=== PATIENT | female | born 2000 | race Caucasian/White ===

== ENCOUNTER 2018-11-25 19:11 | Emergency (ER) | payer OTHER ==
[2018-11-25] MEDS ORDERED: DEXTROSE 5%-NORMAL SALINE 1,000 ML IV ONE (19:38)
[2018-11-25] MEDS ORDERED: METOCLOPRAMIDE HCL INJ/PF 10 MG/2 ML SDV IV ONE (19:38)
[2018-11-25] MEDS ORDERED: PYRIDOXINE HCL INJ 100 MG/1 ML VIAL IV ONE (19:39)
[2018-11-25] MEDS ORDERED: DIPHENHYDRAMINE HCL 50 MG/ML VIAL IV ONE (19:39)
--- NOTE | 2018-11-25 19:41 | ER Document Report ---
ED Medical Screen (RME) - General Chief Complaint: Nausea/Vomiting Stated Complaint: VOMITING Time Seen by Provider: 11/25/18 19:37 Primary Care Provider: YOBANY ALFARO MD [Primary Care Provider] - Follow up as needed Mode of Arrival: Ambulatory Information source: Patient Notes: This is a 17-year-old female 1 para 0 that presents to the emergency room with nausea, vomiting, not tolerating fluids. [facility]. TRAVEL OUTSIDE OF THE [place] IN LAST 30 DAYS: No - Related Data Allergies/Adverse Reactions: No Known Allergies Allergy (Unverified 11/25/18 19:37) Past Medical History - Social History Chew tobacco use (# tins/day): No Frequency of alcohol use: None Drug Abuse: None Renal/ Medical History: Denies: Hx Peritoneal Dialysis Past Surgical History: Reports: Hx Gynecologic Surgery - D&C Physical Exam - Vital signs Vitals: Temp Pulse Resp BP Pulse Ox 99.1 F 110 H 18 116/62 100 11/25/18 19:23 11/25/18 19:23 11/25/18 19:23 11/25/18 19:23 11/25/18 19:23 Course - Vital Signs Vital signs: Temp Pulse Resp BP Pulse Ox 99.1 F 110 H 18 116/62 100 11/25/18 19:23 11/25/18 19:23 11/25/18 19:23 11/25/18 19:23 11/25/18 19:23 Doctor's Discharge - Discharge Referrals: YOBANY ALFARO MD [Primary Care Provider] - Follow up as needed
[2018-11-25 20:16] LABS: ABSOLUTE EOSINOPHILS # (AUTO) 0.1 10^3/uL (0.0-0.6); ABSOLUTE LYMPHOCYTES (AUTO) 1.4 10^3/uL (0.5-4.7); ABSOLUTE MONOCYTES (AUTO) 0.6 10^3/uL (0.1-1.4); ABSOLUTE NEUT (AUTO) 6.8 10^3/uL (1.7-8.2); BASOPHILS % (AUTO) 0.2 % (0-2); EOSINOPHILS % (AUTO) 0.8 % (0-6); HEMATOCRIT 38.5 % (36.0-47.0); HEMOGLOBIN 12.9 g/dL (12.0-15.5); LYMPHOCYTES % (AUTO) 15.7 % (13-45); MEAN CORPUSCULAR HEMOGLOBIN 28.3 pg (27.0-33.4); MEAN CORPUSCULAR HGB CONC 33.5 g/dL (32.0-36.0); MEAN CORPUSCULAR VOLUME 84 fl (80-97); MONOCYTES % (AUTO) 7.1 % (3-13); PLATELET COUNT 371 10^3/uL (150-450); RED BLOOD COUNT 4.57 10^6/uL (3.72-5.28); SEGMENTED NEUTROPHILS % (AUTO) 76.2 % (42-78); TOTAL CELLS COUNTED % (AUTO) 100 %
[2018-11-25 20:33] LABS: APPEARANCE,URINE SLIGHTLY-CLOUDY; BILIRUBIN,URINE NEGATIVE (NEGATIVE); COLOR,URINE YELLOW; GLUCOSE, URINE NEGATIVE (NEGATIVE); KETONES,URINE 20 mg/dL (NEGATIVE); LEUKOCYTE ESTERASE,URINE NEGATIVE (NEGATIVE); NITRITE,URINE NEGATIVE (NEGATIVE); PROTEIN,URINE NEGATIVE (NEGATIVE); URINE SPECIFIC GRAVITY 1.019
[2018-11-25 20:37] LABS: ALANINE AMINOTRANSFERASE 18 U/L (5-35); ALBUMIN 4.8 g/dL (3.7-5.6); ALKALINE PHOSPHATASE 67 U/L (50-135); ANION GAP 14 (5-19); ASPARTATE AMINO TRANSFERASE 25 U/L (5-30); BILIRUBIN,DIRECT 0.2 mg/dL (0.0-0.4); BILIRUBIN,TOTAL 0.6 mg/dL (0.2-1.3); BLOOD UREA NITROGEN 10 mg/dL (7-20); CALCIUM 10.3 mg/dL (8.4-10.2); CARBON DIOXIDE 24 mmol/L (22-30); CHLORIDE 100 mmol/L (98-107); GLUCOSE 90 mg/dL (75-110); POTASSIUM 3.7 mmol/L (3.6-5.0); SODIUM 137.6 mmol/L (137-145); TOTAL PROTEIN 7.5 g/dL (6.3-8.2)
--- NOTE | 2018-11-25 21:10 | ER Document Report ---
ED General - General Chief Complaint: Nausea/Vomiting Stated Complaint: VOMITING Time Seen by Provider: 11/25/18 19:37 Primary Care Provider: YOBANY ALFARO MD [COMMUNITY BASED STAFF] - Follow up as needed Mode of Arrival: Ambulatory Notes: Patient is a 17-year-old female at approximately 7 weeks by ultrasound who presents with 2-3 days of intractable nausea and vomiting. Patient states that she has been unable to keep almost anything down including even fluids. She states that she was seen at [facility] today, apparently was supposed to be prescribed rectal Phenergan but the prescription was not called in. She has therefore been unable to take anything for her symptoms. She states any attempt at eating or drinking worsens her symptoms. Has been nauseated for the past 10 days but states the vomiting did not start until the past 48-72 hours. Denies any abdominal pain or vaginal bleeding. No fever or constitutional symptoms. Symptoms are constant, unchanged today relative to the past several days. TRAVEL OUTSIDE OF THE [place] IN LAST 30 DAYS: No - Related Data Allergies/Adverse Reactions: No Known Allergies Allergy (Unverified 11/25/18 19:37) Past Medical History - General Information source: Patient - Social History Smoking Status: Never Smoker Chew tobacco use (# tins/day): No Frequency of alcohol use: None Drug Abuse: None Lives with: Spouse/Significant other Family History: Reviewed & Not Pertinent Patient has suicidal ideation: No Patient has homicidal ideation: No Renal/ Medical History: Denies: Hx Peritoneal Dialysis Past Surgical History: Reports: Hx Gynecologic Surgery - D&C Review of Systems - Review of Systems Notes: Constitutional: Negative for fever. HENT: Negative for sore throat. Eyes: Negative for visual changes. Cardiovascular: Negative for chest pain. Positive for lightheadedness Respiratory: Negative for shortness of breath. Gastrointestinal: Negative for abdominal pain, positive for vomiting Genitourinary: Negative for dysuria. Musculoskeletal: Negative for back pain. Skin: Negative for rash. Neurological: Negative for headaches, weakness or numbness. 10 point ROS negative except as marked above and in HPI. Physical Exam - Vital signs Vitals: Temp Pulse Resp BP Pulse Ox 99.1 F 110 H 18 116/62 100 11/25/18 19:23 11/25/18 19:23 11/25/18 19:23 11/25/18 19:23 11/25/18 19:23 Interpretation: Tachycardic Notes: PHYSICAL EXAMINATION: GENERAL: Well-appearing, well-nourished and in no acute distress. HEAD: Atraumatic, normocephalic. EYES: Pupils equal round and reactive to light, extraocular movements intact, sclera anicteric, conjunctiva are normal. ENT: nares patent, oropharynx clear without exudates. Mild dry mucous membranes. NECK: Normal range of motion, supple without lymphadenopathy LUNGS: Breath sounds clear to auscultation bilaterally and equal. No wheezes rales or rhonchi. HEART: Regular rate and rhythm without murmurs ABDOMEN: Soft, nontender, normoactive bowel sounds. No guarding, no rebound. No masses appreciated. EXTREMITIES: Normal range of motion, no pitting or edema. No cyanosis. NEUROLOGICAL: No focal neurological deficits. Moves all extremities spontaneously and on command. PSYCH: Normal mood, normal affect. SKIN: Warm, Dry, normal turgor, no rashes or lesions noted. Course - Re-evaluation Re-evalutation: 11/25/18 21:08 Patient presents with persistent vomiting during . Vitals at time of arrival unremarkable without tachycardia or hypotension. Laboratories reveal a normal creatinine and no evidence of significant dehydration. Patient was able to tolerate oral intake here in the emergency department. IV fluids were provided. Patient has had a confirmed intrauterine with in the past 1 week. No indication for repeat imaging given absence of abdominal pain or bleeding. Based on abdominal exam, vitals and history I do not suspect an acute appendicitis, cholestasis of , acute cholecystitis, pancreatitis, or bowel obstruction. Patient will be started on a combination of doxylamine and vitamin B6. At this time will discharge with return precautions and follow- up recommendations. Verbal discharge instructions given a the bedside and opportunity for questions given. Medication warnings reviewed. Patient is in agreement with this plan and has verbalized understanding of return precautions and the need for primary care follow-up in the next 24-72 hours. 11/25/18 21:08 - Vital Signs Vital signs: Temp Pulse Resp BP Pulse Ox 99.1 F 110 H 18 116/62 100 11/25/18 19:23 11/25/18 19:23 11/25/18 19:23 11/25/18 19:23 11/25/18 19:23 - Laboratory Result Diagrams: 11/25/18 19:50 11/25/18 19:50 Laboratory results interpreted by me: 11/25/18 11/25/18 19:50 19:50 Calcium 10.3 H Urine Ketones 20 H Urine Urobilinogen 4.0 H Discharge - Discharge Clinical Impression: Vomiting during , Dehydration Condition: Good Disposition: HOME, SELF-CARE Additional Instructions: You have been seen for vomiting during . You should continue to drink plenty of water and consider taking a solution such as Pedialyte if your having difficulty eating food. Please return if you become unable to drink any fluids for more than 12 hours, urinate less than twice a day, pass out, or have any other symptoms that are concerning to you. For nausea and vomiting during I recommend: Start with 10-12.5 mg of pyridoxine (vitamin B6) three times a day for 2 days. If not fully effective, Increase to 12.5 mg of pyridoxine four times a day for 2 days. If not fully effective, Increase to 25 mg of pyridoxine three times a day for 2 days. If not fully effective, Continue 25 mg pyridoxine 3 times a day, and add 12.5 mg of doxylamine before bedtime each day for 2 days. If not fully effective, Continue 25 mg pyridoxine 3 times a day, and take 12.5 mg of doxylamine twice a day. If not fully effective, Continue 25 mg pyridoxine 3 times a day, and take 12.5 mg of doxylamine three times a day. Prescriptions: Promethazine HCl [Phenergan 25 mg Supp.rect] 1 supp MI Q6H #12 supp.rect Referrals: YOBANY ALFARO MD [COMMUNITY BASED STAFF] - Follow up as needed
[2018-11-25 22:26] VITALS: BP 112/70
== END 2018-11-25 22:27 | disposition home or self-care (01) ==
LOC: ER 19:11
DX: O21.9 Vomiting of pregnancy, unspecified (principal); E86.0 Dehydration; Z3A.01 Less than 8 weeks gestation of pregnancy
CPT/HCPCS: 99284; 96374; 96375; 36415; 84702; 85025; 80053; 81001; J2765; J3415

== ENCOUNTER 2018-12-09 11:43 | Emergency (ER) | payer OTHER ==
--- NOTE | 2018-12-09 12:38 | ER Document Report ---
ED Medical Screen (RME) - General Chief Complaint: Nausea/Vomiting Stated Complaint: VOMITING,WEAKNESS Time Seen by Provider: 12/09/18 12:35 Mode of Arrival: Ambulatory Information source: Patient Notes: 17-year-old female presents to ED for complaint of nausea vomiting for the last week and a half. She states she is not able to keep anything down. She states that she is and has been to [facility]. States they started her on vinegar and it did not help started on back cages and that did not help and now she is not able to keep anything down. She is alert oriented re spirations regular and unlabored speaking in full sentences does not appear to be in any distress at this time. I have greeted and performed a rapid initial assessment of this patient. A comprehensive ED assessment and evaluation of the patient, analysis of test results and completion of medical decision making process will be conducted by an additional ED providers. TRAVEL OUTSIDE OF THE [place] IN LAST 30 DAYS: No - Related Data Allergies/Adverse Reactions: No Known Allergies Allergy (Verified 12/09/18 11:48) Past Medical History - Social History Chew tobacco use (# tins/day): No Frequency of alcohol use: None Drug Abuse: None Renal/ Medical History: Denies: Hx Peritoneal Dialysis Past Surgical History: Reports: Hx Gynecologic Surgery - D&C Physical Exam - Vital signs Vitals: Temp Pulse Resp BP Pulse Ox 98.0 F 89 18 107/53 L 79 L 12/09/18 11:49 12/09/18 11:49 12/09/18 11:49 12/09/18 11:49 12/09/18 11:49 Course - Vital Signs Vital signs: Temp Pulse Resp BP Pulse Ox 98.0 F 89 18 107/53 L 79 L 12/09/18 11:49 12/09/18 11:49 12/09/18 11:49 12/09/18 11:49 12/09/18 11:49
[2018-12-09 13:00] LABS: ABSOLUTE LYMPHOCYTES (AUTO) 1.9 10^3/uL (0.5-4.7); ABSOLUTE MONOCYTES (AUTO) 0.5 10^3/uL (0.1-1.4); ABSOLUTE NEUT (AUTO) 9.6 10^3/uL (1.7-8.2); BASOPHILS % (AUTO) 0.4 % (0-2); EOSINOPHILS % (AUTO) 0.2 % (0-6); HEMATOCRIT 39.8 % (36.0-47.0); HEMOGLOBIN 13.4 g/dL (12.0-15.5); LYMPHOCYTES % (AUTO) 15.4 % (13-45); MEAN CORPUSCULAR HEMOGLOBIN 28.4 pg (27.0-33.4); MEAN CORPUSCULAR HGB CONC 33.7 g/dL (32.0-36.0); MEAN CORPUSCULAR VOLUME 84 fl (80-97); MONOCYTES % (AUTO) 4.2 % (3-13); PLATELET COUNT 435 10^3/uL (150-450); RED BLOOD COUNT 4.73 10^6/uL (3.72-5.28); RED CELL DISTRIBUTION WIDTH 14.3 % (11.5-14.0); SEGMENTED NEUTROPHILS % (AUTO) 79.8 % (42-78); TOTAL CELLS COUNTED % (AUTO) 100 %
[2018-12-09 13:07] LABS: APPEARANCE,URINE SLIGHTLY-CLOUDY; BILIRUBIN,URINE NEGATIVE (NEGATIVE); COLOR,URINE AMBER; GLUCOSE, URINE NEGATIVE (NEGATIVE); KETONES,URINE 80 mg/dL (NEGATIVE); LEUKOCYTE ESTERASE,URINE SMALL (NEGATIVE); NITRITE,URINE NEGATIVE (NEGATIVE); PROTEIN,URINE NEGATIVE (NEGATIVE); URINE SPECIFIC GRAVITY 1.034; UROBILINOGEN,URINE NEGATIVE mg/dL (<2.0)
[2018-12-09 13:22] LABS: ALANINE AMINOTRANSFERASE 24 U/L (5-35); ALBUMIN 4.8 g/dL (3.7-5.6); ALKALINE PHOSPHATASE 69 U/L (50-135); ANION GAP 14 (5-19); ASPARTATE AMINO TRANSFERASE 26 U/L (5-30); BILIRUBIN,DIRECT 0.2 mg/dL (0.0-0.4); BILIRUBIN,TOTAL 0.7 mg/dL (0.2-1.3); BLOOD UREA NITROGEN 13 mg/dL (7-20); CALCIUM 10.8 mg/dL (8.4-10.2); CARBON DIOXIDE 23 mmol/L (22-30); CHLORIDE 101 mmol/L (98-107); GLUCOSE 85 mg/dL (75-110); POTASSIUM 4.6 mmol/L (3.6-5.0); SODIUM 138.3 mmol/L (137-145); TOTAL PROTEIN 7.9 g/dL (6.3-8.2)
[2018-12-09] MEDS ORDERED: METOCLOPRAMIDE HCL INJ/PF 10 MG/2 ML SDV IV ONE (14:16)
[2018-12-09] MEDS: RINGERS SOLUTION,LACTATED 1,000 ML IV PRN ×2 (15:00→15:14)
--- NOTE | 2018-12-09 17:17 | ER Document Report ---
Entered by DARIA PEACE SCRIBE 12/09/18 1500 Acting as scribe for:BART SAUER DO ED GI/ - General Chief Complaint: Nausea/Vomiting Stated Complaint: VOMITING,WEAKNESS Time Seen by Provider: 12/09/18 12:35 Primary Care Provider: KOBY FARAH DO [Primary Care Provider] - Follow up as needed Mode of Arrival: Ambulatory Information source: Patient Notes: 17 year old female who is 9 weeks that presents to the emergency department today with complaints of nausea. Patient states she is prescribed Phenergan and diclegis but never have worked for her nausea. Patient is . Patient states she has not vomited yet. TRAVEL OUTSIDE OF THE [place] IN LAST 30 DAYS: No - Related Data Allergies/Adverse Reactions: No Known Allergies Allergy (Verified 12/09/18 11:48) Past Medical History - General Information source: Patient - Social History Smoking Status: Never Smoker Cigarette use (# per day): No Chew tobacco use (# tins/day): No Frequency of alcohol use: None Drug Abuse: None Lives with: Family Family History: Reviewed & Not Pertinent Patient has suicidal ideation: No Patient has homicidal ideation: No Past Surgical History: Reports: Hx Gynecologic Surgery - D&C Review of Systems - Review of Systems Constitutional: No symptoms reported EENT: No symptoms reported Cardiovascular: No symptoms reported Respiratory: No symptoms reported Gastrointestinal: See HPI, Nausea. denies: Vomiting Genitourinary: No symptoms reported Female Genitourinary: See HPI, Musculoskeletal: No symptoms reported Skin: No symptoms reported Hematologic/Lymphatic: No symptoms reported Neurological/Psychological: No symptoms reported -: Yes All other systems reviewed and negative Physical Exam - Vital signs Vitals: Temp Pulse Resp BP Pulse Ox 98.0 F 89 18 107/53 L 97 12/09/18 11:49 12/09/18 11:49 12/09/18 11:49 12/09/18 11:49 12/09/18 11:49 Course - Re-evaluation Re-evalutation: 12/09/18 17:11 Patient with vomiting in early . Patient is 9 weeks today and had an ultrasound outpatient confirming intrauterine . Patient has tried using Phenergan and likely just at home without results. Patient was given Reglan and fluids here. She is now able to take p.o. Will be given a prescrip tion for Reglan and Zofran as needed for nausea and vomiting. - Vital Signs Vital signs: Temp Pulse Resp BP Pulse Ox 98.0 F 89 18 107/53 L 97 12/09/18 11:49 12/09/18 11:49 12/09/18 11:49 12/09/18 11:49 12/09/18 11:49 - Laboratory Result Diagrams: 12/09/18 12:43 12/09/18 12:43 Laboratory results interpreted by me: 12/09/18 12/09/18 12/09/18 12:43 12:43 12:43 WBC 12.0 H RDW 14.3 H Seg Neutrophils % 79.8 H Absolute Neutrophils 9.6 H Calcium 10.8 H Beta HCG, Quant 576516.00 H Urine Ketones 80 H Ur Leukocyte Esterase SMALL H Discharge - Discharge Clinical Impression: Vomiting affecting , antepartum Condition: Stable Instructions: Vomiting ([facility]), Hyperemesis Gravidarum ([facility]) Prescriptions: Metoclopramide HCl [Reglan 10 mg Tablet] 1 - 2 tab PO ASDIR PRN #60 tablet PRN Reason: Referrals: KOBY FARAH DO [Primary Care Provider] - Follow up as needed Scribe Attestation: 12/09/18 17:17 I personally performed the services described in the documentation, reviewed and edited the documentation which was dictated to the scribe in my presence, and it accurately records my words and actions. I personally performed the services described in the documentation, reviewed and edited the documentation which was dictated to the scribe in my presence, and it accurately records my words and actions.
[2018-12-09 17:35] VITALS: BP 109/60
== END 2018-12-09 17:35 | disposition home or self-care (01) ==
LOC: ER 11:43
DX: O21.9 Vomiting of pregnancy, unspecified (principal); Z3A.09 9 weeks gestation of pregnancy
CPT/HCPCS: 99284; 96361; 96374; 36415; 84702; 85025; 80053; 81001; J2765; J7120

== ENCOUNTER 2019-05-22 14:39 | Outpatient (CLI) | payer OTHER ==
[2019-05-22 15:21] LABS: AMORPHOUS SEDIMENT,URINE TRACE /HPF; APPEARANCE,URINE SLIGHTLY-CLOUDY; BILIRUBIN,URINE NEGATIVE (NEGATIVE); COLOR,URINE AMBER; GLUCOSE, URINE NEGATIVE (NEGATIVE); KETONES,URINE NEGATIVE (NEGATIVE); LEUKOCYTE ESTERASE,URINE NEGATIVE (NEGATIVE); NITRITE,URINE NEGATIVE (NEGATIVE); PROTEIN,URINE 30 mg/dL (NEGATIVE); URINE SPECIFIC GRAVITY 1.024
[2019-05-22 15:29] LABS: RBCS (WET MOUNT) NO RBCS SEEN; T.VAGINALIS (WET MOUNT) NO TRICHOMONAS SEEN; WBCS (WET MOUNT) 1+ WBCS SEEN; YEAST (WET MOUNT) NO YEAST SEEN
[2019-05-22 15:30] LABS: BACTERIA (WET MOUNT) 4+ BACTERIA SEEN; EPITHELIALS (WET MOUNT) 4+ EPITHELIALS SEEN
[2019-05-22 15:41] LABS: URINE AMPHETAMINES SCREEN NEGATIVE; URINE BARBITURATES SCREEN NEGATIVE; URINE BENZODIAZEPINES SCREEN NEGATIVE; URINE COCAINE SCREEN NEGATIVE; URINE MARIJUANA (THC) SCREEN NEGATIVE; URINE METHADONE SCREEN NEGATIVE; URINE PHENCYCLIDINE SCREEN NEGATIVE
[2019-05-22] MEDS ORDERED: HYDROXYZINE PAMOATE 50 MG CAPSULE PO ONE (16:00)
[2019-05-22] MEDS ORDERED: HYDROXYZINE PAMOATE 50 MG CAPSULE ONE (16:12)
--- NOTE | 2019-05-22 16:24 | Non Stress Test Report ---
Non Stress Test Datetime Report Generated by CPN: 05/22/2019 16:24 DEMOGRAPHIC EGA NST: 32.3 EGA NST: 32.3 INDICATION Indication for Study: Other Indication for Study (NST) Other: LABOR CHECK MONITORING Monitor Explained: Monitor Explained; Test Explained; Patient Verbalized Understanding Monitor Explained: Monitor Explained; Test Explained; Patient Verbalized Understanding Time on Monitor: 05/22/2019 15:10 Time on Monitor: 05/22/2019 15:10 Time off Monitor: 05/22/2019 16:02 NST Duration: 52 NST INTERVENTIONS NST Interventions: PO Hydration; Reposition Patient NST Interventions: PO Hydration; Reposition Patient Physician Notified NST: DR YOUNG BABY A: [id number] BABY A Movement : Present Contraction Frequency : IRRITABILITY Contraction Frequency : IRRITABILITY FHR Baseline : 135 FHR Baseline : 135 Accelerations : 15X15 Accelerations : 15X15 Decelerations : None Decelerations : None Variability : Moderate 6-25bpm Variability : Moderate 6-25bpm NST Review: Meets Criteria for Reactive NST NST Review and Verified By : BL ROULUND, RN NST Results: Reactive NST REPORT Report Trigger: Send Report
[2019-05-22 17:02] LABS: CHLAM PCR NOT DETECTED (NOT DETECT)
== END 2019-05-22 16:16 | disposition home or self-care (01) ==
LOC: LC 14:39
PROVIDERS: ATTEND Obstetrics & Gynecology
PROC: 4A1HXCZ Monitoring of Products of Conception, Cardiac Rate, External Approach (ICD-10-PCS; principal; 2019-05-22)
DX: Z34.03 Encounter for supervision of normal first pregnancy, third trimester (principal)
CPT/HCPCS: 59025; 80307; 81001; 84112; 87210; 87491; 87591

== ENCOUNTER 2019-06-20 15:25 | Outpatient (CLI) | payer OTHER | END 2019-06-20 17:32 | disposition home or self-care (01) | LOC: LC 15:25 | PROVIDERS: ATTEND Obstetrics & Gynecology | PROC: 4A1HXCZ Monitoring of Products of Conception, Cardiac Rate, External Approach (ICD-10-PCS; principal; 2019-06-20) | DX: Z34.03 Encounter for supervision of normal first pregnancy, third trimester (principal); Z3A.36 36 weeks gestation of pregnancy | CPT/HCPCS: 59025 ==

== ENCOUNTER 2019-06-22 17:59 | Outpatient (CLI) | payer OTHER ==
--- NOTE | 2019-06-22 18:51 | Non Stress Test Report ---
Non Stress Test Datetime Report Generated by CPN: 06/22/2019 18:51 DEMOGRAPHIC EGA NST: 36.6 INDICATION Indication for Study: Ordered by Provider MONITORING Monitor Explained: Monitor Explained; Test Explained; Patient Verbalized Understanding Time on Monitor: 06/22/2019 18:19 Time off Monitor: 06/22/2019 18:47 NST Duration: 28 NST INTERVENTIONS NST Interventions: Reposition Patient Physician Notified NST: Dr. Jack BABY A: [id number] BABY A Movement : Present Contraction Frequency : 2-3 FHR Baseline : 145 Accelerations : 15X15 Decelerations : None Variability : Moderate 6-25bpm NST Review: Meets Criteria for Reactive NST NST Review and Verified By : MAGY Campos Results: Reactive NST REPORT Report Trigger: Send Report
[2019-06-22 19:04] LABS: APPEARANCE,URINE SLIGHTLY-CLOUDY; BILIRUBIN,URINE NEGATIVE (NEGATIVE); COLOR,URINE YELLOW; GLUCOSE, URINE NEGATIVE (NEGATIVE); KETONES,URINE TRACE mg/dL (NEGATIVE); LEUKOCYTE ESTERASE,URINE TRACE (NEGATIVE); NITRITE,URINE NEGATIVE (NEGATIVE); PROTEIN,URINE 30 mg/dL (NEGATIVE); URINE SPECIFIC GRAVITY 1.026; UROBILINOGEN,URINE NEGATIVE mg/dL (<2.0)
[2019-06-22] MEDS ORDERED: RINGERS SOLUTION,LACTATED 1,000 ML IV PRN (19:12)
[2019-06-22 19:24] LABS: URINE AMPHETAMINES SCREEN NEGATIVE; URINE BARBITURATES SCREEN NEGATIVE; URINE BENZODIAZEPINES SCREEN NEGATIVE; URINE COCAINE SCREEN NEGATIVE; URINE MARIJUANA (THC) SCREEN NEGATIVE; URINE METHADONE SCREEN NEGATIVE; URINE PHENCYCLIDINE SCREEN NEGATIVE
== END 2019-06-22 22:16 | disposition home or self-care (01) ==
LOC: LC 17:59
PROVIDERS: ATTEND Obstetrics & Gynecology
PROC: 4A1HXCZ Monitoring of Products of Conception, Cardiac Rate, External Approach (ICD-10-PCS; principal; 2019-06-22)
DX: O47.03 False labor before 37 completed weeks of gestation, third trimester (principal); Z3A.36 36 weeks gestation of pregnancy
CPT/HCPCS: 59025; 80307; 81001; 82962

== ENCOUNTER 2019-07-05 01:54 | Inpatient (IN) | payer OTHER ==
--- NOTE | 2019-07-05 03:00 | Admission Physical ---
Datetime Report Generated by CPN: 07/05/2019 03:00 CURRENT ADMISSION Chief Complaint: Suspected Ruptured Membranes Indication for Induction: Not Applicable Admit Impression : Term, Intrauterine ; Ruptured Membranes Admit Plan: Admit to Unit; Initiate Labor Protocol ALLERGIES Medication Allergies: No Medication Allergies: No Known Allergies (06/22/2019) Latex: No Latex Allergies OBSTETRICAL HISTORY EDC: 07/14/2019 00:00 : 1 Para: 0 Term: 0 : 0 SAB: 0 IAB: 0 Ectopic: 0 Livin Cesareans: 0 VBACs: 0 Multiple Births: 0 Gestational Diabetes: No Rh Sensitization: No Incompetent Cervix: No VEDA: No Infertility: No ART Treatment: No Uterine Anomaly: No IUGR: No Hx Previous C/S: No Macrosomia: No Hx Loss/Stillborn: No PIH: No Hx : No Placenta Previa/Abruption: No Depression/PP Depression: No PTL/PROM: No Post Hemorrhage: No Current Procedures: Ultrasound; NST SEE RECORDS Alcohol: No Marijuana : No Cocaine: No Other Illicit Drugs: No Cigarettes: Never Smoker. [id number] MEDICAL HISTORY Diabetes: No Blood Transfusion: No Pulmonary Disease (Asthma, TB): No Breast Disease: No Hypertension: No Government Relations Director Surgery: No Heart Disease: No Hosp/Surgery: Yes Autoimmune Disorder: No Anesthetic Complications: No Kidney Disease: No Abnormal Pap Smear: No Neuro/Epilepsy: No Psychiatric Disorders: No Other Medical Diseases: No Hepatitis/Liver Disease: No Significant Family History: No Varicosities/Phlebitis: No Trauma/Violence : No Thyroid Dysfunction: No Medical History Comments: D_C done for heavy periods INFECTIOUS HISTORY Gonorrhea: No Genital Herpes: No Chlamydia: Yes Tuberculosis: No Syphilis: No Hepatitis: No HIV/AIDS Exposure: No Rash or Viral Illness: No HPV: No Infectious History Comments: Positive chlamydia 12/20 JACKELINE 02/08 PHYSICAL EXAM General: Normal HEENT: Normal Neurologic: Normal Thyroid: Normal Heart: Normal Lungs: Normal Breast: Normal Back: Normal Abdomen: Normal Genitourinary Exam: Normal Extremities: Normal DTRs: Normal Pelvic Type: Adequate Vital Signs: Reviewed; Within Normal Limits VAGINAL EXAM Dilatation: 3 Effacement: 80 Station: -1 Contraction Comments: irreg MEMBRANES Pooling: Positive Membranes: Ruptured Amniotic Fluid Color: Clear FETUS A EGA: 38.5 Monitoring: External US FHR- Baseline: 120s Variability: Moderate 6-25bpm Accelerations: 15X15 Decelerations: None FHR Category: Category I Admit Comment: G1 w/ IUP at 38.5 presents to L_D c/o "I think my water broke" at 0100. Clear fluid noted. She is regine irregularly. Cervix is 3 cm; GBS Neg. She reports good movement. Suspectd macrosomia--8# 3 oz predicted on EFW last week. PLANS FOR LABOR AND DELIVERY Labor and Delivery: None Pain Management: Epidural Feeding Preference: Formula Benefit of Breast Feed Discussed: Yes Circumcision: Yes INFORMED CONSENT Signature: with User ID: [email or web address]
[2019-07-05] MEDS ORDERED: RINGERS SOLUTION,LACTATED 1,000 ML IV PRN (03:03)
[2019-07-05 03:12] LABS: URINE AMPHETAMINES SCREEN NEGATIVE; URINE BARBITURATES SCREEN NEGATIVE; URINE BENZODIAZEPINES SCREEN NEGATIVE; URINE COCAINE SCREEN NEGATIVE; URINE MARIJUANA (THC) SCREEN NEGATIVE; URINE METHADONE SCREEN NEGATIVE; URINE PHENCYCLIDINE SCREEN NEGATIVE
[2019-07-05 03:53] LABS: ABSOLUTE BASOPHILS # (AUTO) 0.1 10^3/uL (0.0-0.2); ABSOLUTE EOSINOPHILS # (AUTO) 0.1 10^3/uL (0.0-0.6); ABSOLUTE LYMPHOCYTES (AUTO) 2.3 10^3/uL (0.5-4.7); ABSOLUTE NEUT (AUTO) 7.8 10^3/uL (1.7-8.2); BASOPHILS % (AUTO) 0.6 % (0-2); EOSINOPHILS % (AUTO) 0.7 % (0-6); HEMATOCRIT 28.2 % (36.0-47.0); HEMOGLOBIN 8.8 g/dL (12.0-15.5); LYMPHOCYTES % (AUTO) 20.4 % (13-45); MEAN CORPUSCULAR HEMOGLOBIN 22.6 pg (27.0-33.4); MEAN CORPUSCULAR HGB CONC 31.2 g/dL (32.0-36.0); MEAN CORPUSCULAR VOLUME 73 fl (80-97); MONOCYTES % (AUTO) 8.5 % (3-13); PLATELET COUNT 255 10^3/uL (150-450); RED BLOOD COUNT 3.89 10^6/uL (3.72-5.28); SEGMENTED NEUTROPHILS % (AUTO) 69.8 % (42-78); TOTAL CELLS COUNTED % (AUTO) 100 %; WHITE BLOOD COUNT 11.2 10^3/uL (4.0-10.5)
[2019-07-05] MEDS ORDERED: LIDOCAINE 1% INJ-PF (10 MG/ML) 30 ML SDV ONE (08:10)
[2019-07-05] MEDS ORDERED: MISOPROSTOL 0.2 MG TABLET ONE (08:10)
[2019-07-05] MEDS ORDERED: OXYTOCIN/NORMAL SALINE 20 UNIT/1,000 ML RTUINJ ONE (08:10)
[2019-07-05] MEDS ORDERED: OXYTOCIN 10 UNIT/ML VIAL ONE (08:10)
[2019-07-05] MEDS ORDERED: OXYTOCIN/NORMAL SALINE 20 UNIT/1,000 ML RTUINJ IV PRN ×2 (08:24→18:17)
[2019-07-05] MEDS ORDERED: FENTANYL/BUPIVACAINE/NS/PF 300 MCG/150 ML RTUINJ EPI ONE (09:19)
[2019-07-05] MEDS ORDERED: EPHEDRINE SULFATE INJ 50 MG/1 ML AMPULE ONE (09:19)
[2019-07-05] MEDS ORDERED: BUPIVACAINE HCL 0.25 % INJ/PF (2.5 MG/1 ML) 30 ML VIAL ONE (09:19)
--- NOTE | 2019-07-05 18:01 | Delivery Summary ---
Del Sum A-C Datetime Report Generated by CPN: 07/05/2019 18:01 DELIVERY PERSONNEL DELIVERY PERSONNEL: [id number] Delivery Doctor:: Caitlin Paniagua MD Labor and Delivery Nurse:: nAh Garcia RNfreight rate specialist Nurse:: LUZ MARIA Mclean Nursery Nurse:: Rica Gill RN Nursery Nurse:: Christinaa Peguero RN Brass Cutter/MOBILE TESTER: Alecia Sanchez, NUTRITION AIDE Additional Personnel: : Ivory Martin RN MATERNAL INFORMATION Delivery Anesthesia: Epidural Medications After Delivery: Pitocin Bolus-Please Comment Estimated Blood Loss (ml): 100 Maternal Complications: None LABOR SUMMARY EDC: 07/14/2019 00:00 No. Babies in Womb: 1 (Annotations: Data stored by [facility] on behalf of user) Attempted: No Labor Anesthesia: Epidural LABOR INFORMATION Reason for Induction: Not Applicable Onset of Labor: 07/05/2019 08:30 Complete Dilatation: 07/05/2019 15:00 Oxytocin: Augmentation Group B Beta Strep: negative Steroids Given: None Reason Steroids Not Administered: Not Applicable MEMBRANES Membranes Rupture Method: Spontaneous Rupture of Membranes: 07/05/2019 01:01 Length of Rupture (hr): 16.30 Amniotic Fluid Color: Clear Amniotic Fluid Amount: Small Amniotic Fluid Odor: Normal STAGES OF LABOR Stage 1 hr: 6 Stage 1 min: 30 Stage 2 hr: 2 Stage 2 min: 19 VAGINAL DELIVERY Laceration #1: Perineal Laceration Extension #1: Second Degree Laceration Repair: Yes Sponge Count Correct: Yes BABY A INFORMATION Infant Delivery Date/Time: 07/05/2019 17:19 Method of Delivery: Vaginal Born in Route : No : N/A Forceps: N/A Vacuum Extraction: N/A Shoulder Dystocia : No PRESENTATION/POSITION BABY A Presentation: Cephalic Cephalic Presentation: Vertex Vertex Position: Right Occipital Posterior Breech Presentation: N/A PLACENTA INFORMATION BABY A Placenta Method of Delivery: Spontaneous Placenta Status: Delivered SCORES BABY A Heart Rate 1 min: >100 bpm Resp Effort 1 min: Good Cry Reflex Irritability 1 min: Cough or Sneeze or Pulls Away Muscle Tone 1 min: Active Motion Color 1 min: Blue/Pale Resuscitation Effort 1 min: Tactile Stimulation SCORE 1 MIN: 8 Heart Rate 5 min: >100 bpm Resp Effort 5 min: Good Cry Reflex Irritability 5 min: Cough or Sneeze or Pulls Away Muscle Tone 5 min: Active Motion Color 5 min: Body [place], Extremities Blue Resuscitation Effort 5 min: Tactile Stimulation SCORE 5 MIN: 9 INFANT INFORMATION BABY A Gestational Age at Delivery: 38+5 Infant Outcome : Liveborn Condition : Stable Infant Sex: Male IDENTIFICATION BABY A Infant Verification Date/Time: 07/05/2019 17:54 ID Band Number: [id number] Mother's Name Verified: Yes RN Verifying Infant: Sam Glover RN BABY B INFORMATION : N/A
[2019-07-05] MEDS ORDERED: DIBUCAINE 1% OINTMENT 56 GM TP PRN (18:17)
[2019-07-05] MEDS ORDERED: DIPH/PERTUSS(ACELL)/TETANUS VAC/PF 0.5 ML SYR (>=10YO) IM PRN (18:17)
[2019-07-05] MEDS ORDERED: BENZOCAINE/MENTHOL AEROSOL SPRAY 56 ML TOP PRN (18:17)
[2019-07-05] MEDS ORDERED: MEASLES,MUMPS&RUBELLA VACC/PF 0.5 ML VIAL SUBCUT PRN (18:17)
[2019-07-05] MEDS ORDERED: ZOLPIDEM TARTRATE 5 MG TABLET PO PRN (18:17)
[2019-07-05] MEDS ORDERED: ACETAMINOPHEN WITH CODEINE #3 TABLET PO PRN (18:17)
[2019-07-05] MEDS ORDERED: IBUPROFEN 800 MG TABLET ONE ×2 (18:30→22:40)
[2019-07-05] MEDS ORDERED: BENZOCAINE/MENTHOL AEROSOL SPRAY 56 ML ONE (22:03)
[2019-07-05] MEDS: IBUPROFEN 800 MG TABLET PO SCH (22:45)
[2019-07-06] MEDS ORDERED: ACETAMINOPHEN WITH CODEINE #3 TABLET ONE ×2 (02:18→08:27)
[2019-07-06] MEDS: ACETAMINOPHEN WITH CODEINE #3 TABLET PO PRN ×4 (02:21→17:41)
[2019-07-06] MEDS ORDERED: IBUPROFEN 800 MG TABLET ONE (05:34)
[2019-07-06] MEDS: IBUPROFEN 800 MG TABLET PO SCH ×4 (05:36→21:29)
--- NOTE | 2019-07-06 07:34 | Warning Signs in Babies ---
VOD Warning Signs Datetime Report Generated by [facility]: 07/06/2019 07:34 VOD#608 -Warning Signs in Babies: Viewed with Parent(s)/Family (05/22/2019 14:49:Michele Skaggs RN)
--- NOTE | 2019-07-06 08:02 | Warning Signs in Babies ---
VOD Warning Signs Datetime Report Generated by N: 07/06/2019 08:02 VOD#608 -Warning Signs in Babies: Viewed with Parent(s)/Family (07/06/2019 08:02:Michele Skaggs RN)
[2019-07-06] MEDS: SENNOSIDES/DOCUSATE 8.6-50 MG 1 EACH TABLET PO SCH (09:14)
[2019-07-06] MEDS: PRENATAL VITAMIN W DHA CAPSULE PO SCH (09:14)
[2019-07-06] MEDS: DOCUSATE SODIUM 100 MG CAPSULE PO SCH ×2 (09:14→17:41)
[2019-07-06] MEDS: FERROUS SULFATE 325 MG TABLET PO SCH ×2 (09:15→17:41)
[2019-07-07] MEDS: IBUPROFEN 800 MG TABLET PO SCH ×2 (05:17→15:19)
[2019-07-07] MEDS ORDERED: INFLUENZA QUAD (6MOS+) 2019-20 VAC 0.5 ML SYR IM ONE (08:00)
--- NOTE | 2019-07-07 09:26 | PDOC DISCHARGE SUMMARY ---
Impression - Admit/DC Date/PCP Admission Date/Primary Care Provider: 07/05/19 02:52 Discharge Date: 07/07/19 - Discharge Diagnosis (1) (spontaneous vaginal delivery) Is this a current diagnosis for this admission?: Yes (2) Second degree perineal laceration during delivery Is this a current diagnosis for this admission?: Yes - Additional Information Resuscitation Status: Full Code Discharge Diet: Regular Discharge Activity: Balance Activity w/Rest, Pelvic Rest Home Medications: Ferrous Sulfate [Iron] 325 mg PO BID 07/05/19 Results Laboratory Results: WBC 11.2 10^3/uL (4.0-10.5) H 07/05/19 03:21 RBC 3.89 10^6/uL (3.72-5.28) 07/05/19 03:21 Hgb 8.8 g/dL (12.0-15.5) L 07/05/19 03:21 Hct 28.2 % (36.0-47.0) L 07/05/19 03:21 MCV 73 fl (80-97) L 07/05/19 03:21 MCH 22.6 pg (27.0-33.4) L 07/05/19 03:21 MCHC 31.2 g/dL (32.0-36.0) L 07/05/19 03:21 RDW 16.0 % (11.5-14.0) H 07/05/19 03:21 Plt Count 255 10^3/uL (150-450) 07/05/19 03:21 Lymph % (Auto) 20.4 % (13-45) 07/05/19 03:21 [place] % (Auto) 8.5 % (3-13) 07/05/19 03:21 Eos % (Auto) 0.7 % (0-6) 07/05/19 03:21 Baso % (Auto) 0.6 % (0-2) 07/05/19 03:21 Absolute Neuts (auto) 7.8 10^3/uL (1.7-8.2) 07/05/19 03:21 Absolute Lymphs (auto) 2.3 10^3/uL (0.5-4.7) 07/05/19 03:21 Absolute Monos (auto) 1.0 10^3/uL (0.1-1.4) 07/05/19 03:21 Absolute Eos (auto) 0.1 10^3/uL (0.0-0.6) 07/05/19 03:21 Absolute Basos (auto) 0.1 10^3/uL (0.0-0.2) 07/05/19 03:21 Seg Neutrophils % 69.8 % (42-78) 07/05/19 03:21 Membranes Rupture POSITIVE (NEGATIVE) H 07/05/19 02:15 Urine Opiates Screen NEGATIVE 07/05/19 02:15 Urine Methadone Screen NEGATIVE 07/05/19 02:15 Ur Barbiturates Screen NEGATIVE 07/05/19 02:15 Ur Phencyclidine Scrn NEGATIVE 07/05/19 02:15 Ur Amphetamines Screen NEGATIVE 07/05/19 02:15 U Benzodiazepines Scrn NEGATIVE 07/05/19 02:15 Urine Cocaine Screen NEGATIVE 07/05/19 02:15 U Marijuana (THC) Screen NEGATIVE 07/05/19 02:15 RPR NONREACTIVE (NONREACTIVE) 07/05/19 03:21 Blood Type O POSITIVE 07/05/19 03:21 Antibody Screen NEGATIVE 07/05/19 03:21
[2019-07-07] MEDS: FERROUS SULFATE 325 MG TABLET PO SCH (09:58)
[2019-07-07] MEDS: SENNOSIDES/DOCUSATE 8.6-50 MG 1 EACH TABLET PO SCH (09:58)
[2019-07-07] MEDS: DOCUSATE SODIUM 100 MG CAPSULE PO SCH (09:58)
[2019-07-07] MEDS: PRENATAL VITAMIN W DHA CAPSULE PO SCH (10:11)
[2019-07-07 10:15] LABS: ABSOLUTE BASOPHILS # (AUTO) 0.1 10^3/uL (0.0-0.2); ABSOLUTE EOSINOPHILS # (AUTO) 0.1 10^3/uL (0.0-0.6); ABSOLUTE LYMPHOCYTES (AUTO) 2.7 10^3/uL (0.5-4.7); ABSOLUTE MONOCYTES (AUTO) 0.7 10^3/uL (0.1-1.4); ABSOLUTE NEUT (AUTO) 9.9 10^3/uL (1.7-8.2); BASOPHILS % (AUTO) 0.6 % (0-2); EOSINOPHILS % (AUTO) 0.7 % (0-6); HEMATOCRIT 28.2 % (36.0-47.0); HEMOGLOBIN 8.7 g/dL (12.0-15.5); LYMPHOCYTES % (AUTO) 19.9 % (13-45); MEAN CORPUSCULAR HEMOGLOBIN 22.5 pg (27.0-33.4); MEAN CORPUSCULAR HGB CONC 30.7 g/dL (32.0-36.0); MEAN CORPUSCULAR VOLUME 73 fl (80-97); MONOCYTES % (AUTO) 5.1 % (3-13); PLATELET COUNT 272 10^3/uL (150-450); RED BLOOD COUNT 3.85 10^6/uL (3.72-5.28); RED CELL DISTRIBUTION WIDTH 16.3 % (11.5-14.0); SEGMENTED NEUTROPHILS % (AUTO) 73.7 % (42-78); TOTAL CELLS COUNTED % (AUTO) 100 %; WHITE BLOOD COUNT 13.5 10^3/uL (4.0-10.5)
[2019-07-07 12:45] VITALS: BP 127/64
== END 2019-07-07 17:00 | disposition home or self-care (01) | DRG 807 ==
LOC: LC 01:54 → EEVIPCON 02:52 → LR 02:52 → 2S 07-06 08:35
PROVIDERS: ADMIT Obstetrics & Gynecology; ATTEND Obstetrics & Gynecology
PROC: 10E0XZZ Delivery of Products of Conception, External Approach (ICD-10-PCS; principal; 2019-07-05)
PROC: 0KQM0ZZ Repair Perineum Muscle, Open Approach (ICD-10-PCS; 2019-07-05)
PROC: 3E02340 Introduction of Influenza Vaccine into Muscle, Percutaneous Approach (ICD-10-PCS; 2019-07-07)
PROC: 3E0234Z Introduction of Serum, Toxoid and Vaccine into Muscle, Percutaneous Approach (ICD-10-PCS; 2019-07-07)
DX: O70.1 Second degree perineal laceration during delivery (principal); Z37.0 Single live birth; Z3A.38 38 weeks gestation of pregnancy; Z86.19 Personal history of other infectious and parasitic diseases; Z23 Encounter for immunization
CPT/HCPCS: 36415; 80307; 84112; 85025; 86592; 86850; 86900; 86901; 90686; 90707; 94760; J2590; J3010; J3490